=== PATIENT | male | born 1940 | race Caucasian/White ===

== ENCOUNTER 2023-10-26 20:04 | Emergency (ER) | payer MEDICARE ==
[2023-10-26] MEDS: Diphtheria,Pertussis(Acell),Tetanus Vaccine 0.5 ML Syringe IM ONE (20:43)
[2023-10-26] MEDS: Bacitracin Oint 1 GM U/D Packet TOP ONE (20:43)
== END 2023-10-26 21:04 | disposition home or self-care (01) ==
LOC: JP.ED 20:04
DX: S81.811A Laceration without foreign body, right lower leg, initial encounter (principal); S41.112A Laceration without foreign body of left upper arm, initial encounter; S61.011A Laceration without foreign body of right thumb without damage to nail, initial encounter; S00.31XA Abrasion of nose, initial encounter; Z88.8 Allergy status to other drugs, medicaments and biological substances; Z79.84 Long term (current) use of oral hypoglycemic drugs; Z79.899 Other long term (current) drug therapy; Z23 Encounter for immunization; F17.210 Nicotine dependence, cigarettes, uncomplicated; W01.198A Fall on same level from slipping, tripping and stumbling with subsequent striking against other object, initial encounter
CPT/HCPCS: 90471; 90715; 99283-25